=== PATIENT | male | born 1970 | race Hispanic/Latino ===

== ENCOUNTER 2019-08-12 15:16 | Inpatient (IN) | payer BC, OTHER ==
[~2019-08-12] VITALS: Ht 170.2 cm; Wt 95.3 kg
[2019-08-12 15:48] LABS: BASOPHILS # (AUTO) 0.1 (0.0-0.1); BASOPHILS % 0.7 % (0.0-1.0); EOSINOPHILS # (AUTO) 0.2 (0.0-0.4); EOSINOPHILS % 2.2 % (0.0-6.0); HEMATOCRIT 44.7 % (38.2-49.6); HEMOGLOBIN 15.5 g/dL (14.0-18.0); LYMPHOCYTES # (AUTO) 2.1 (1.0-3.2); LYMPHOCYTES % 27.5 % (18.0-39.1); MEAN CORPUSCULAR HEMOGLOBIN 30.3 pg (28-32); MEAN CORPUSCULAR HGB CONC 34.7 g/dL (31-35); MEAN CORPUSCULAR VOLUME 87.5 fL (81-99); MONOCYTES # (AUTO) 0.6 (0.2-0.8); MONOCYTES % 7.3 % (4.4-11.3); NEUTROPHILS # (AUTO) 4.7 (2.1-6.9); NEUTROPHILS % 61.5 % (38.7-80.0); PLATELET COUNT 314 x10e3/uL (140-360); RED BLOOD COUNT 5.11 x10e6/uL (4.3-5.7); RED CELL DISTRIBUTION WIDTH 12.2 % (11.7-14.4)
[2019-08-12 15:54] LABS: CLARITY,URINE CLEAR (CLEAR); COLOR,URINE YELLOW (YELLOW)
[2019-08-12 15:55] LABS: BILIRUBIN,URINE NEGATIVE (NEGATIVE); KETONES,URINE NEGATIVE (NEGATIVE); LEUKOCYTE ESTERASE ,URINE NEGATIVE (NEGATIVE); NITRITE,URINE NEGATIVE (NEGATIVE); PROTEIN,URINE DIPSTICK NEGATIVE (NEGATIVE); URINE UROBILINOGEN 0.2 mg/dL (0.2 - 1)
[2019-08-12 16:03] LABS: EPITHELIAL CELLS,URINE FEW /LPF
[2019-08-12 16:07] LABS: ALBUMIN 3.9 g/dL (3.5-5.0); ANION GAP 16.1 mmol/L (8-16); CALCIUM 9.6 mg/dL (8.4-10.2); CREATININE, SERUM 1.73 mg/dL (0.72-1.25); POTASSIUM 4.1 mmol/L (3.5-5.1)
[2019-08-12] MEDS ORDERED: INSULIN REGULAR, HUMAN 100 UNIT/1 ML 3ML VIAL SQ ONE (16:15)
[2019-08-12] MEDS: SODIUM CHLORIDE 0.9% 1000ML 2,000 ML IV SCH (16:19)
[2019-08-12 16:20] LABS: BLOOD UREA NITROGEN 20 mg/dL (7-26); CHOL/HDL RATIO 5.7 (3.9-4.7); CHOLESTEROL 218 MD/DL (0-199); HDL CHOLESTEROL 38 MG/DL (40-60); OSMOLALITY,SERUM 289 mOsm/kg (278-305); PHOSPHORUS 3.3 MG/DL (2.3-4.7); SODIUM 134 mmol/L (136-145); TRIGLYCERIDES 749 MG/DL (0-149)
[2019-08-12 16:22] LABS: GLUCOSE 428 mg/dL (74-118)
[2019-08-12] MEDS ORDERED: DEXTROSE 50% SYRINGE 50 ML IV PRN (17:15)
[2019-08-12] MEDS ORDERED: ONDANSETRON HCL INJ 2MG/ML 2ML 2 MG/ML VIAL IV PRN (17:15)
[2019-08-12] MEDS ORDERED: SODIUM CHLORIDE FLUSH 10 ML SYR INJ PRN (17:15)
--- NOTE | 2019-08-12 18:22 | NUR ---
Received patient from ER. Patient alert and oriented, sitting up in bed eating dinner. No signs of distress or c/o pain at this time. Oriented to room, all safety measures in place. Call light placed within reach. Family at bedside. Will continue to monitor.
[2019-08-12] MEDS: SODIUM CHLORIDE 0.9% 1000ML 1,000 ML IV SCH (19:30)
[2019-08-12 20:00] VITALS: BP_SYST 114; BP_SYST 119; BP_DIAS 66
--- NOTE | 2019-08-12 20:00 | NUR ---
Patient received lying in bed. AAO x 4. Admission history obtained. Initial physical assessment performed. IVF infusing at 100 cc/ hr. Patient oriented to room, call light and plan of care. Safety measures implemented. Patient instructed to call for assistance when needed. Call light within reach.
[2019-08-12] MEDS: INSULIN REGULAR, HUMAN 100 UNIT/1 ML 3ML VIAL SQ SCH (21:00)
[2019-08-13] VITALS (8 sets, daily range): BP systolic 111–123; BP diastolic 56–68
[2019-08-13] MEDS: SODIUM CHLORIDE 0.9% 1000ML 1,000 ML IV SCH (01:02)
[2019-08-13 05:28] LABS: BASOPHILS # (AUTO) 0.1 (0.0-0.1); EOSINOPHILS # (AUTO) 0.2 (0.0-0.4); EOSINOPHILS % 2.9 % (0.0-6.0); HEMOGLOBIN 13.7 g/dL (14.0-18.0); LYMPHOCYTES # (AUTO) 2.1 (1.0-3.2); LYMPHOCYTES % 30.2 % (18.0-39.1); MEAN CORPUSCULAR HEMOGLOBIN 29.8 pg (28-32); MEAN CORPUSCULAR HGB CONC 33.4 g/dL (31-35); MEAN CORPUSCULAR VOLUME 89.3 fL (81-99); MONOCYTES # (AUTO) 0.5 (0.2-0.8); MONOCYTES % 7.1 % (4.4-11.3); NEUTROPHILS % 57.9 % (38.7-80.0); PLATELET COUNT 253 x10e3/uL (140-360); RED BLOOD COUNT 4.59 x10e6/uL (4.3-5.7); RED CELL DISTRIBUTION WIDTH 12.4 % (11.7-14.4)
[2019-08-13] MEDS: ACETAMINOPHEN 325 MG TAB PO PRN ×2 (05:35→12:39)
[2019-08-13 06:11] LABS: ALANINE AMINOTRANSFERASE 26 IU/L (0-55); ALBUMIN 3.2 g/dL (3.5-5.0); ALBUMIN/GLOBULIN RATIO 1.1 (0.8-2.0); ALKALINE PHOSPHATASE 91 IU/L (40-150); ANION GAP 9.9 mmol/L (8-16); BLOOD UREA NITROGEN 15 mg/dL (7-26); BUN/CREATININE RATIO 19 (6-25); CALCIUM 8.7 mg/dL (8.4-10.2); CARBON DIOXIDE 25 mmol/L (22-29); CHLORIDE 104 mmol/L (98-107); EST GLOMERULAR FILTRATION RATE > 60 ML/MIN (60-); GLUCOSE 238 mg/dL (74-118); MAGNESIUM 1.7 MG/DL (1.3-2.1); PHOSPHORUS 3.6 MG/DL (2.3-4.7); POTASSIUM 3.9 mmol/L (3.5-5.1); SODIUM 135 mmol/L (136-145)
--- NOTE | 2019-08-13 07:00 | NUR ---
received am report from RN and morning rounds done. pt is alert resting in bed, no s/s of distress. call light within reach and instructed pt to call nurse for help
[2019-08-13] MEDS: INSULIN REGULAR, HUMAN 100 UNIT/1 ML 3ML VIAL SQ SCH (09:30)
[2019-08-13] MEDS ORDERED: DEXTROSE 50% SYRINGE 50 ML IV PRN (09:45)
[2019-08-13] MEDS: INSULIN LISPRO 100 UNIT/1 ML 3ML VIAL SQ SCH ×5 (11:30→20:56)
--- NOTE | 2019-08-13 15:26 | Diagnostic Imaging Report ---
MRI BRAIN WO HISTORY: Headache COMPARISON: None. TECHNIQUE: Sagittal T2, axial T2, axial T1, axial T2/FLAIR, axial gradient echo (or susceptibility weighted), coronal T2/FLAIR, and axial diffusion weighted MR images of the brain were obtained without contrast. DISCUSSION: Scalp/bone marrow: Unremarkable. Brain sulci: Appropriate for patient's age. Ventricles: Normal in size and configuration. No hydrocephalus. Extra-axial spaces: No masses or fluid collections. Parenchyma: A few small T2/FLAIR hyperintense foci throughout the supratentorial white matter are likely chronic microvascular ischemic changes. No mass, hemorrhage, or acute vascular insults. Vessels: Normal flow voids in major arteries and veins. Sellar/Suprasellar region: No abnormalities. Craniocervical junction: No abnormalities. Incidental findings: None. IMPRESSION: 1. No acute intracranial abnormalities. 2. Minimal supratentorial chronic microvascular ischemic changes. Signed by: Dr. Fermin Wallace M.D. on 08/13/2019 3:22 PM
--- NOTE | 2019-08-13 15:36 | Diagnostic Imaging Report ---
MRA HEAD WO HISTORY: Headache COMPARISON: Concurrent brain MRI TECHNIQUE: Axial 3D intracranial [id number] MRA images were obtained without contrast. Maximum intensity projection images were created. FINDINGS: Carotid arteries: No flow abnormalities in the intracranial internal carotid arteries. Normal A1 and M1 segments. The right A1 segment is markedly hypoplastic, which is a normal variant. Vertebrobasilar Circulation: Right vertebral artery: No flow abnormalities. Left vertebral artery: No flow abnormalities. Basilar artery: No flow abnormalities. Posterior cerebral arteries: No flow abnormalities. Normal Variants: ACom: Visualized. PComs: Patent on the left with small infundibulum. Persistent circulation on the right with hypoplastic P1 segment. Vertebral arteries: Left dominant. IMPRESSION: No intracranial MRA abnormalities. Signed by: Dr. Fermin Wallace M.D. on 08/13/2019 3:32 PM
--- NOTE | 2019-08-13 16:33 | History and Physical ---
PRIMARY CARE PHYSICIAN: Charly Pierson MD. SHANK ARCHER: Fred Salgado MD. CHIEF COMPLAINT: Severe headaches associated with severe hyperglycemia and triglyceride elevation. HISTORY: This is a 49-year-old male who has been having some headaches for some time, but much worse when he presented to the emergency room. He was diagnosed with diabetes approximately 2 years ago and at that time, he was giving insulin, but he only took it for 30 days. Did not follow up with Dr. Charly Pierson. Now, the patient came in with significantly elevated blood sugars. The patient's blood sugar on admission was 428. The patient also has BUN and creatinine of 20 and 1.73. The patient was severely dehydrated. The patient's triglyceride was 749 with total cholesterol 218. The patient's LDL was not able to calculate it. The patient was placed on IV fluid and insulin sliding scale coverage. His glycohemoglobin A1c is 12. The patient is also complaining of frontal headaches. PAST MEDICAL HISTORY: Diabetes type 2, dyslipidemia. PAST SURGICAL HISTORY: Noncontributory. SOCIAL HISTORY: The patient does not smoke or use alcohol. No regular drug. ALLERGIES: NO KNOWN ALLERGIES. HOME MEDICATIONS: None. PHYSICAL EXAMINATION: VITAL SIGNS: Temperature is 97, blood pressure 111/57, pulse rate 60, and respirations 18. GENERAL: The patient is not in acute distress. He is awake. HEENT: Normocephalic, atraumatic. Anicteric. NECK: Supple grossly. PULMONARY: Diminished breath sounds without any wheezing. CARDIOVASCULAR: S1, S2. Regular rate and rhythm. ABDOMEN: Soft, obese. EXTREMITIES: No cyanosis or edema. NEUROLOGIC: No focal deficit. LABORATORY DATA: Sodium is 134, potassium 4.1, chloride 99, bicarb 23, BUN 20, creatinine 1.7, and glucose is 428. WBC is 7.6, hemoglobin 15, hematocrit 45, and platelets 314. IMPRESSION: 1. Severe hyperglycemia associated with uncontrolled diabetes type 2. Glycohemoglobin A1c is 12. 2. Persistent headache with normal blood pressure. 3. Severe hypertriglyceridemia associated with dyslipidemia. PLAN: The patient is already admitted. Initiation of treatment. Roller Inspector, insulin education. Consultation with Dr. Fred Salgado. Obtain MRA and MRI of the brain with contrast. We will monitor the patient closely. MD LEANDRO Abdi/ORALIA /[id number]
[2019-08-13] MEDS: SODIUM CHLORIDE 0.9% 1000ML 2,000 ML IV SCH (17:00)
--- NOTE | 2019-08-13 19:01 | NUR ---
Nutrition Screen Note RD Recommendation for Physician: -Continue diet as ordered Plan of Care: RD following, monitoring for tolerance and adequacy, diet education Nutrition reason for involvement: RN consult diet education Primary Diagnose(s): 1.Severe hyperglycemia associated with uncontrolled diabetes type 2. 2.Hyperlipidemia PMH: Diabetes type 2, dyslipidemia Ht: 67in Wt: 210lb BMI: 32.9kg/m2 IBW: 148lb +/- 10% RD Assessment: (08/13) Chart reviewed. Labs and meds reviewed. 49yo M, who was admitted for hyperglycemia and hyperlipidemia. HbA1c at 12.0%. TG 749; Cholesterol 218. Visited pt in the room. Pt was dx with DM about 2 years ago. He took insulin for 30 days and stopped since then. BG has trend down since admission. No GI complains reported. Weight has been stable. Pt will probably go home tomorrow on insulin. RD provided information regarding to diabetic diet. was very motivated in planning meals for pt. All questions have been answered. Current Diet: ADA 1800 Malnutrition Evaluation (08/13/2019) The patient does not meet criteria for a specified degree of malnutrition at this time. Will re-evaluate at follow-up as appropriate. Diet Education Needs Assessment: Diet education indicated, pt and were agreeable. Learner(s): pt and Time spent: 25 mins Barriers: No barriers identified. Cultural/Language Modifications: No cultural/language modifications noted. Pt and speak Peruvian. Readiness: Pt eager to learn. Method: Handouts, explanation Topics: Carbohydrate exchanges, Carbohydrate counting handouts, Reading the nutrition label, meal planning tips, exercise tips, servings/portion sizes Understanding/Compliance: Expect good understanding/compliance from pt. Will benefit from reinforcement. Nutrition Care Level: low Signed: Thais Carter, MS, RD, LD
[2019-08-13] MEDS ORDERED: INSULIN GLARGINE 100 UNITS/ML VIAL SQ SCH (21:00)
[2019-08-13] MEDS ORDERED: ATORVASTATIN 20 MG TAB PO SCH (21:00)
[2019-08-13] MEDS ORDERED: FENOFIBRATE 145 MG TAB PO SCH (21:00)
[2019-08-14] VITALS (7 sets, daily range): BP systolic 110–138; BP diastolic 53–79
[2019-08-14] MEDS: SODIUM CHLORIDE 0.9% 1000ML 2,000 ML IV SCH (03:57)
[2019-08-14 06:29] LABS: ANION GAP 10.8 mmol/L (8-16); BLOOD UREA NITROGEN 10 mg/dL (7-26); BUN/CREATININE RATIO 12 (6-25); CALCIUM 8.8 mg/dL (8.4-10.2); CARBON DIOXIDE 27 mmol/L (22-29); CHLORIDE 105 mmol/L (98-107); CREATININE, SERUM 0.84 mg/dL (0.72-1.25); EST GLOMERULAR FILTRATION RATE > 60 ML/MIN (60-); GLUCOSE 145 mg/dL (74-118); POTASSIUM 3.8 mmol/L (3.5-5.1); SODIUM 139 mmol/L (136-145)
--- NOTE | 2019-08-14 07:22 | NUR ---
BEDSIDE SHIFT REPORT GIVEN TO ONCOMING NURSE.PT RESTING IN BED WITH NO S/S OF DISTRESS.
--- NOTE | 2019-08-14 07:24 | NUR ---
Received patient lying in bed with eyes open. Respiration even and unlabored without SOB. Call light in reach.
[2019-08-14] MEDS: INSULIN LISPRO 100 UNIT/1 ML 3ML VIAL SQ SCH ×6 (08:01→17:05)
--- NOTE | 2019-08-14 14:45 | NUR ---
Met with Dr. Gay and discussed pt status and dc plans. He stated he will see pt and decide.
--- NOTE | 2019-08-14 16:38 | NUR ---
IV to right AC discontinued, catheter tip intact, no bleeding noted.
[2019-08-14] MEDS ORDERED: ATORVASTATIN CA20 MG PO (16:40)
[2019-08-14] MEDS ORDERED: NOVOLOG MI100 UNIT/1 (16:43)
[2019-08-14] MEDS ORDERED: vascepa PO (16:46)
[2019-08-14] MEDS ORDERED: tresiba SC (16:50)
--- NOTE | 2019-08-14 17:08 | NUR ---
Patient is discharging to home today. Transported via wheelchair to private vehicle. Belongings are with patient's family members.
--- NOTE | 2019-08-15 05:13 | Discharge Summary ---
PRIMARY CARE PHYSICIAN: Dr. Charly Pierson. FINAL DIAGNOSES: 1. Severe headaches and hypoglycemia. MRI is negative. 2. Uncontrolled diabetes type 2 with hemoglobin A1c of 12. 3. Triglycerides 749, total cholesterol of 218, LDL was not calculated, and HDL was 38. SUMMARY: The patient is a 49 years male, came in with severe headache. The patient has workup done. Found to have uncontrolled diabetes with blood sugar in the 4-500 and his triglyceride level was 749. The patient also has a hemoglobin A1c of 12. The patient was placed on insulin treatments and also Lipitor and triglycerides treatment. The patient is otherwise stable. He is doing much better. He is comfortable and stable. The patient will go home today with medication of Tresiba FlexPen in an ensuring formulary of 4 units subcu at bedtime. NovoLog FlexPen 10 units before meals, Lipitor 20 mg at night, and Vascepa 1 g two caps b.i.d. The patient instructed to follow up with Dr. Charly Pierson for referral to see an dot net developer as an outpatient. The patient will continue with his treatment as an outpatient. He did see the dietitian and diabetic education was also given as well. The patient is stable and discharged home today. Follow up as an outpatient. MD LEANDRO Abdi/ORALIA /[id number]
== END 2019-08-14 17:10 | disposition home or self-care (01) | DRG 638 ==
LOC: ER 15:16 → ERHOLD 17:02 → MED/SURG2 18:10
PROVIDERS: ADMIT Internal Medicine; ATTEND Internal Medicine
DX: E11.65 Type 2 diabetes mellitus with hyperglycemia (principal); N17.9 Acute kidney failure, unspecified; R51 Headache; E78.1 Pure hyperglyceridemia; E78.5 Hyperlipidemia, unspecified; E86.0 Dehydration; Z79.4 Long term (current) use of insulin; Z28.21 Immunization not carried out because of patient refusal
CPT/HCPCS: 36415; 70544; 70551; 80048; 80053; 80061; 81001; 82947; 82948; 83036; 83735; 84100; 84295; 84520; 85025; 99284; J1815; J1817; J7030